=== PATIENT | female | born 1975 | race Caucasian/White ===

== ENCOUNTER 2017-07-09 01:18 | Emergency (ER) | payer MEDICAID ==
[2017-07-09] MEDS ORDERED: Ondansetron 4 MG/2 ML SDV IVPUSH ONE (01:49)
[2017-07-09] MEDS ORDERED: HYDROmorphone 1 MG/ML Syringe IVPUSH ONE (01:49)
--- NOTE | 2017-07-09 01:55 | EDM.PDOC ---
ED HPI GENERAL MEDICAL PROBLEM - General Chief Complaint: Abdominal Pain Stated Complaint: LOWER PAIN RIGHT SIDE Time Seen by Provider: 07/09/17 01:44 Source of Information: Reports: Patient, Family History Limitations: Reports: No Limitations - History of Present Illness INITIAL COMMENTS - FREE TEXT/NARRATIVE: This is a 41-year-old female. This evening she was going down some steps and developed severe pain in her right lower back that goes down into her buttocks. Apparently she has a history of doing house cleaning on a repetitive and continuous process at home. A lot of half bending a lot of twisting mopping sweeping she's been having some soreness in the right lower back but tonight it got markedly worse. She also states she she's had noted some blood in her urine over the last week or so but no fever no chills no nausea vomiting or diarrhea. She denies any trauma to her lower back she denies any upper back type symptoms. Due to the pain in her right lower back and her inability to ambulate very well she comes to the ER. right flank Pain Score (Numeric/FACES): 10 - Related Data Allergies Allergy/AdvReac Type Severity Reaction Status Date / Time codeine Allergy Itching Verified 07/09/17 01:36 Home Meds: Home Meds Orphenadrine [Norflex] 100 mg PO BID PRN #12 tab.er 07/09/17 [Rx] oxyCODONE HCl/Acetaminophen [Percocet 5-325 mg Tablet] 1 each PO Q8HR PRN #12 tablet 07/09/17 [Rx] Past Medical History HEENT History: Reports: Impaired Vision Genitourinary History: Reports: Renal Calculus Oncologic (Cancer) History: Reports: Cervix Other Oncologic History: radiation and chemo - Past Surgical History Female Surgical History: Reports: Hysterectomy, Oophorectomy Social & Family History - Family History Family Medical History: Noncontributory - Tobacco Use Smoking Status *Q: Never Smoker Second Hand Smoke Exposure: No - Caffeine Use Caffeine Use: Reports: Coffee, Energy Drinks - Recreational Drug Use Recreational Drug Use: No ED ROS GENERAL - Review of Systems Review Of Systems: See Below Constitutional: Denies: Fever, Chills HEENT: Reports: No Symptoms Respiratory: Reports: No Symptoms Cardiovascular: Reports: No Symptoms Endocrine: Reports: No Symptoms GI/Abdominal: Reports: No Symptoms : Reports: Hematuria Musculoskeletal: Reports: Back Pain, Other (Right SI joint pain) Skin: Reports: No Symptoms Neurological: Reports: No Symptoms Psychiatric: Reports: No Symptoms Hematologic/Lymphatic: Reports: No Symptoms ED EXAM, GENERAL - Physical Exam Exam: See Below Exam Limited By: No Limitations General Appearance: Alert, WD/WN, Mild Distress Eye Exam: Bilateral Eye: Normal Inspection Ears: Normal External Exam Nose: Normal Inspection Throat/Mouth: Normal Inspection, Normal Lips, Normal Voice, No Airway Compromise Head: Normocephalic Neck: Supple Respiratory/Chest: No Respiratory Distress GI/Abdominal: Soft, Non-Tender Back Exam: Other (Patient really doesn't have any lumbar tenderness on palpation , there is no paraspinal and mid spine pain, however she is markedly tender over the right SI joint and the pain goes down posteriorly just below the buttocks, there is no lower extremity swelling noted) Extremities: Normal Inspection, No Pedal Edema, Other (She denies any extremity symptoms) Neurological: Alert, Oriented Psychiatric: Normal Affect, Normal Mood Skin Exam: Warm, Dry Course - Vital Signs Last Recorded V/S: Last Vital Signs Temp 97.4 F 07/09/17 01:33 Pulse 78 07/09/17 01:33 Resp 18 07/09/17 01:33 BP 109/55 L 07/09/17 01:33 Pulse Ox 98 07/09/17 01:33 - Orders/Labs/Meds Orders: Active Orders 24 hr Category Date Time Status Lumbar Spine 2 or 3V [CR] Stat Exams 07/09/17 01:50 Taken Pelvis 1V or 2V [CR] Stat Exams 07/09/17 01:51 Taken Labs: Laboratory Tests 07/09/17 Range/Units 03:40 Urine Color Yellow (Yellow) Urine Appearance Slt cloudy H (Clear) Urine pH 5.5 (5.0-8.0) Ur Specific [place] > or = 1.030 (1.005-1.030) Urine Protein Negative (Negative) Urine Glucose (UA) Negative (Negative) Urine Ketones Negative (Negative) Urine Occult Blood Negative (Negative) Urine Nitrite Negative (Negative) Urine Bilirubin Negative (Negative) Urine Urobilinogen 0.2 (0.2-1.0) Ur Leukocyte Esterase 1+ H (Negative) Urine RBC 0-5 (0-5) /hpf Urine WBC 5-10 H (0-5) /hpf Urine WBC Clumps Rare (NOT SEEN) /hpf Ur Epithelial Cells 5-10 H (0-5) /hpf Urine Bacteria Few (FEW) /hpf Hyaline Casts 0-5 (0-5) /lpf Urine Mucus Many H (FEW) /hpf Meds: Medications Discontinued Medications Generic Name Dose Route Start Last Admin Trade Name Carlosq PRN Reason Stop Dose Admin Hydromorphone HCl 1 mg 07/09/17 01:49 07/09/17 01:57 Dilaudid IVPUSH 07/09/17 01:50 1 mg ONETIME ONE Administration Ketorolac Tromethamine 30 mg 07/09/17 02:58 07/09/17 03:06 Toradol IVPUSH 07/09/17 02:59 30 mg ONETIME ONE Administration Ondansetron HCl 4 mg 07/09/17 01:49 07/09/17 01:57 Zofran IVPUSH 07/09/17 01:50 4 mg ONETIME ONE Administration - Radiology Interpretation Free Text/Narrative:: X-rays of the pelvis and lumbar spine do not show any acute changes - Re-Assessments/Exams Free Text/Narrative Re-Assessment/Exam: 07/09/17 04:39 I spoke to the patient regarding her x-ray results as well as the urinalysis. I explained to her that she has a right sacroiliacitis is causing her pain and that she will need to follow-up with her family doctor for possible physical therapy. I'll provide something for muscle relaxer and something for pain and she is to continue with her anti-inflammatories. Departure - Departure Time of Disposition: 04:40 Disposition: Home, Self-Care 01 Condition: Good Clinical Impression: Pain of right sacroiliac joint, Muscle spasm of back - Discharge Information Prescriptions: oxyCODONE HCl/Acetaminophen [Percocet 5-325 mg Tablet] 1 each PO Q8HR PRN #12 tablet PRN Reason: Pain Orphenadrine [Norflex] 100 mg PO BID PRN #12 tab.er PRN Reason: Spasms Forms: ED Department Discharge Additional Instructions: Take the medicine for pain and for muscle spasms as needed, use ice to your back to help with the soreness or heat depending which feels better, follow-up with your family doctor this week for recheck and possible physical therapy, continue with your anti-inflammatories such as ibuprofen, return to the ER as needed - My Orders Last 24 Hours: My Active Orders 07/09/17 01:50 Lumbar Spine 2 or 3V [CR] Stat 07/09/17 01:51 Pelvis 1V or 2V [CR] Stat - Assessment/Plan Last 24 Hours: My Active Orders 07/09/17 01:50 Lumbar Spine 2 or 3V [CR] Stat 07/09/17 01:51 Pelvis 1V or 2V [CR] Stat
[2017-07-09] MEDS ORDERED: Ketorolac 30 MG/ML SDV IVPUSH ONE (02:58)
--- NOTE | 2017-07-10 06:45 | CR ---
Pelvis: AP view of the pelvis was obtained. Comparison: No prior study. Slight sclerosis is seen within the sacroiliac joints. Joint spaces within both hips are preserved. Surgical clips are seen within the pelvis. No fracture or other abnormality is seen. Impression: 1. Slight degenerative sclerosis noted within the sacroiliac joints. 2. Surgical clips. 3. AP pelvis study is otherwise unremarkable. Diagnostic code #2
--- NOTE | 2017-07-10 06:45 | CR ---
Lumbar spine: AP, lateral and coned-down lateral views centered to the lumbosacral junction were obtained. Comparison: No prior study. Severe disc space narrowing is noted at L5-S1. Other disc spaces are preserved. Vertebral body heights are maintained. Pedicles as well as visualized transverse and spinous processes are intact. Slight sclerosis is noted within the sacroiliac joints. Multiple surgical clips are partially seen within the pelvis. Impression: 1. Severe disc space narrowing at L5-S1. Mild degenerative sclerosis within both sacroiliac joints. Diagnostic code #2
== END 2017-07-09 04:48 | disposition home or self-care (01) ==
LOC: JD.ED 01:18
DX: M53.3 Sacrococcygeal disorders, not elsewhere classified (principal); M62.830 Muscle spasm of back; Z88.5 Allergy status to narcotic agent
CPT/HCPCS: 72100; 72170; 81001; 96374; 96375; 99284; J1170; J1885; J2405

== ENCOUNTER 2017-07-24 09:17 | Emergency (ER) | payer MEDICAID ==
[2017-07-24] MEDS ORDERED: HYDROmorphone 1 MG/ML Syringe IM ONE (11:20)
[2017-07-24] MEDS ORDERED: Cyclobenzaprine 10 MG Tab PO ONE (11:20)
[2017-07-24] MEDS ORDERED: predniSONE 20 MG Tab PO ONE (11:21)
--- NOTE | 2017-07-24 11:26 | EDM.PDOC ---
ED HPI GENERAL MEDICAL PROBLEM - General Chief Complaint: Back Pain or Injury Stated Complaint: BACK PAIN Time Seen by Provider: 07/24/17 11:09 Source of Information: Reports: Patient History Limitations: Reports: No Limitations - History of Present Illness INITIAL COMMENTS - FREE TEXT/NARRATIVE: Patient is a 41-year-old female presents ED complaining of low back pain with right-sided sciatica. Patient states she was seen in the ED with x-ray of the lumbar spine obtained. She was referred to chiropractor for further treatment. Chiropractor states it appears patient has a herniated disc and he will not do any further treatment. She was told to go to a surgeon for back surgery. Patient 's been trying homeopathic therapies at home with no relief. She has not established care here in [place] with moving here just 21/2 weeks ago. States the pain waxes and wanes in intensity with intermittent pain down the right leg. There is no saddle anesthesia, incontinence to urine/stool, n/t, or weakness. She does limp with walking but notes there is no foot drop. No prior injury to the affected area. She also has a history of cervical cancer with intermittent hemorrhagic cystitis secondary to radiation. She offers no additional complaints at this time. Lower Back Pain Score (Numeric/FACES): 8 - Related Data Allergies Allergy/AdvReac Type Severity Reaction Status Date / Time codeine Allergy Itching Verified 07/24/17 09:30 Home Meds: Home Meds Cyclobenzaprine [Flexeril] 10 mg PO TID PRN #12 tablet 07/24/17 [Rx] Naproxen 500 mg PO BID #14 tablet 07/24/17 [Rx] Prednisone [IJD: predniSONE] 40 mg PO WITHBREAKFAST #10 tab 07/24/17 [Rx] Past Medical History HEENT History: Reports: Impaired Vision Genitourinary History: Reports: Renal Calculus Musculoskeletal History: Reports: Other (See Below) Other Musculoskeletal History: "blown disk in lower back" Psychiatric History: Reports: Anxiety Oncologic (Cancer) History: Reports: Cervix Other Oncologic History: radiation and chemo - Past Surgical History Female Surgical History: Reports: Hysterectomy, Oophorectomy Social & Family History - Family History Family Medical History: Noncontributory - Tobacco Use Smoking Status *Q: Never Smoker Second Hand Smoke Exposure: No - Caffeine Use Caffeine Use: Reports: Coffee, Energy Drinks - Recreational Drug Use Recreational Drug Use: No ED ROS GENERAL - Review of Systems Review Of Systems: ROS reveals no pertinent complaints other than HPI. ED EXAM,LOWER BACK PAIN/INJURY - Physical Exam Exam: See Below Exam Limited By: No Limitations General Appearance: Alert, WD/WN, Moderate Distress Ears: Hearing Grossly Normal Nose: Normal Inspection Throat/Mouth: Normal Voice, No Airway Compromise Neck: Normal Inspection, Supple Respiratory/Chest: No Respiratory Distress, Lungs Clear, Normal Breath Sounds, No Accessory Muscle Use, Chest Non-Tender Cardiovascular: Normal Peripheral Pulses, Regular Rate, Rhythm, No Murmur GI/Abdominal: Normal Bowel Sounds, Soft, Non-Tender, No Organomegaly, No Distention Back Exam: Normal Inspection, Decreased Range of Motion, Paraspinal Tenderness, Vertebral Tenderness. No: CVA Tenderness (L), CVA Tenderness (R) Extremities: Normal Inspection, Non-Tender, No Pedal Edema, Normal Capillary Refill, Limited Range of Motion Neurological: Alert, Normal Mood/Affect, Normal Dorsiflexion, CN II-XII Intact, Normal Plantar Flexion, No Motor/Sensory Deficits, Oriented x 3, Straight Leg Raise (R), Difficulty Walking. No: Normal Gait, Straight Leg Raise (L) Psychiatric: Normal Affect, Normal Mood Skin Exam: Warm, Dry, Intact, Normal Color Course - Vital Signs Last Recorded V/S: Last Vital Signs Temp 97.8 F 07/24/17 09:26 Pulse 76 07/24/17 09:26 Resp 18 07/24/17 09:26 BP 119/80 07/24/17 09:26 Pulse Ox 100 07/24/17 09:26 - Orders/Labs/Meds Meds: Medications Discontinued Medications Generic Name Dose Route Start Last Admin Trade Name Freq PRN Reason Stop Dose Admin Cyclobenzaprine HCl 10 mg 07/24/17 11:20 07/24/17 11:47 Flexeril PO 07/24/17 11:21 10 mg ONETIME ONE Administration Hydromorphone HCl 1 mg 07/24/17 11:20 07/24/17 11:45 Dilaudid IM 07/24/17 11:21 1 mg ONETIME ONE Administration Prednisone 40 mg 07/25/17 11:21 Prednisone PO 07/25/17 11:22 ONETIME ONE Prednisone 40 mg 07/24/17 11:21 07/24/17 11:47 Prednisone PO 07/24/17 11:22 40 mg ONETIME ONE Administration - Re-Assessments/Exams Free Text/Narrative Re-Assessment/Exam: Patient sitting up in bed with moderate amount of pain on examination. Positive right leg straight leg test. Ordered flexeril 10 mg by mouth, hydromorphone 1 mg IM, and prednisone 40 mg by mouth. Plan is to discharge patient home after patient has decrease in pain noted. Referral to physical therapy as well as MRI of the back will be ordered on outpatient basis. We'll schedule appointment with Dr. Jeffery to establish care and for further pain management. 07/24/17 12:43 reassessment, patient's pain has improved with the above therapies. She is ready be discharged home. We're able to make an appointment with Dr. Jeffery at 10:30 tomorrow morning. I have ordered MRI of the lumbar spine and also PT referral to evaluate and treat. They will contact her with both appointment times and days. Discharge instructions as documented. Departure - Departure Time of Disposition: 12:44 Disposition: Home, Self-Care 01 Clinical Impression: Lumbar back pain with radiculopathy affecting right lower extremity, Muscle spasm of back - Discharge Information Prescriptions: Cyclobenzaprine [Flexeril] 10 mg PO TID PRN #12 tablet PRN Reason: Pain (Severe 7-10) Naproxen 500 mg PO BID #14 tablet Prednisone [IJD: predniSONE] 40 mg PO WITHBREAKFAST #10 tab Instructions: Back Injury Prevention, [id number], Muscle Strain, [id number] , Back Pain, Adult, [id number], Pain Medicine Instructions, [id number] Referrals: Leighton Peter [Physician] - Forms: ED Department Discharge Additional Instructions: Take the Flexeril 10 mg 3 times a day as needed. In addition prescribed naproxen 500 mg twice a day and prednisone 40 mg every morning for the next 5 days. Take both medications with food and plenty of water. Refrain from any activities that cause worsening pain. Can apply ice to affected area as needed with warm compresses in alternating fashion. You have an appointment with Dr. Jeffery 07/25/2017 at 10:30 a.m to establish care and for further pain management. Outpatient MRI study of the lumbar spine has been ordered they will contact you with appointment time. See Dr. Jeffery for results of MRI. In addition ordered PT referral to evaluate and treat. They will contact you with appointment time. No driving today since receiving a sedative medication while in the ED. No driving while taking the Flexeril. Refrain from any activities that cause worsening pain. Return to the ED as needed for any new or worsening symptoms.
[2017-07-25] MEDS ORDERED: predniSONE 20 MG Tab PO ONE (11:21)
== END 2017-07-24 13:05 | disposition home or self-care (01) ==
LOC: JD.ED 09:17
DX: M54.16 Radiculopathy, lumbar region (principal); M62.830 Muscle spasm of back; Z88.5 Allergy status to narcotic agent
CPT/HCPCS: 96372; 99283; A9270; J1170

== ENCOUNTER 2017-09-05 13:13 | Emergency (ER) | payer MEDICAID ==
[2017-09-05] MEDS ORDERED: HYDROmorphone 1 MG/ML Syringe IVPUSH ONE ×4 (13:38→17:41)
[2017-09-05] MEDS ORDERED: Sodium Chloride 0.9% 10 ML Syringe FLUSH PRN (13:38)
[2017-09-05] MEDS ORDERED: Sodium Chloride 0.9% 1,000 ML IV SCH (13:45)
[2017-09-05] MEDS ORDERED: Ondansetron 4 MG/2 ML SDV IVPUSH ONE (16:01)
--- NOTE | 2017-09-05 16:29 | EDM.PDOC ---
ED HPI GENERAL MEDICAL PROBLEM - General Chief Complaint: Genitourinary Problem Stated Complaint: BLOOD CLOTS IN URINE Time Seen by Provider: 09/05/17 13:25 Source of Information: Reports: Patient History Limitations: Reports: No Limitations - History of Present Illness INITIAL COMMENTS - FREE TEXT/NARRATIVE: The patient presents with hematura and pelvic pain this started today. She has been passing many clots. She had cervical cancer in 2011 that required radiation and hysterectomy with salpingo oophorectomy. She did good until June. She started having severe low back pain. She was seen here twice and the second time an MRI was ordered. The MRI showed possible mets to the right iliac and sacrum. There was also a soft tissue mass near the right iliac bone. She went back to [facility] to see her doctor Dr Tl Jasso. He did a PET scan and a biopsy. She was heading back to see him yesterday when she got called not to come because the results were not in. She started passing clots in her urine. She has dysuria. She feels weak. She has no headache, chest pain, or shortness of breath. She has some nausea. Onset: Today Duration: Hour(s): Location: Reports: Abdomen Quality: Reports: Sharp Severity: Moderate Improves with: Reports: None Worsens with: Reports: None Associated Symptoms: Reports: Nausea/Vomiting. Denies: Chest Pain, Fever/Chills , Headaches, Shortness of Breath lower back Pain Score (Numeric/FACES): 8 - Related Data Allergies Allergy/AdvReac Type Severity Reaction Status Date / Time codeine Allergy Itching Verified 09/05/17 13:24 Home Meds: Home Meds Cyclobenzaprine [Flexeril] 10 mg PO TID PRN #12 tablet 07/24/17 [Rx] Naproxen 500 mg PO BID #14 tablet 07/24/17 [Rx] HYDROmorphone [Dilaudid] 2 mg PO Q4H PRN 09/05/17 [History] Past Medical History HEENT History: Reports: Impaired Vision Genitourinary History: Reports: Renal Calculus, Retention, Urinary Musculoskeletal History: Reports: Other (See Below) Other Musculoskeletal History: "blown disk in lower back", possible metastasis to back Psychiatric History: Reports: Anxiety Oncologic (Cancer) History: Reports: Bladder, Cervix Other Oncologic History: radiation and chemo - Past Surgical History Female Surgical History: Reports: Hysterectomy, Oophorectomy, Other (See Below) Other Female Surgeries/Procedures: radiation to bladder Social & Family History - Family History Family Medical History: Noncontributory - Tobacco Use Smoking Status *Q: Unknown Ever Smoked Second Hand Smoke Exposure: No - Caffeine Use Caffeine Use: Reports: Soda - Recreational Drug Use Recreational Drug Use: No ED ROS GENERAL - Review of Systems Review Of Systems: See Below Constitutional: Reports: No Symptoms HEENT: Reports: No Symptoms Respiratory: Reports: No Symptoms Cardiovascular: Reports: No Symptoms Endocrine: Reports: No Symptoms GI/Abdominal: Reports: Abdominal Pain, Nausea. Denies: Vomiting : Reports: Dysuria, Hematuria Musculoskeletal: Reports: No Symptoms ED EXAM, RENAL/ - Physical Exam Exam: See Below Exam Limited By: No Limitations General Appearance: Alert, No Apparent Distress Ears: Normal External Exam Nose: Normal Inspection Head: Atraumatic, Normocephalic Neck: Normal Inspection Respiratory/Chest: No Respiratory Distress, Lungs Clear, Normal Breath Sounds Cardiovascular: Regular Rate, Rhythm, No Edema, No Murmur GI/Abdominal: Soft, No Organomegaly, No Mass, Tender (Moderate tenderness to the lower abdomen) Back Exam: Normal Inspection Extremities: Normal Inspection Neurological: Alert, Oriented, No Motor/Sensory Deficits Course - Vital Signs Last Recorded V/S: Last Vital Signs Temp 97.9 F 09/05/17 13:15 Pulse 102 H 09/05/17 13:15 Resp 18 09/05/17 13:15 BP 135/95 H 09/05/17 13:15 Pulse Ox 98 09/05/17 13:15 - Orders/Labs/Meds Orders: Active Orders 24 hr Category Date Time Status Insert Leslie Catheter [Insert Urinary Catheter] [OM.PC] Care 09/05/17 14:45 Ordered Q24H Peripheral IV Care [RC] . DIRECTED Care 09/05/17 13:38 Active Urinary Catheter Assessment [RC] ASDIRECTED Care 09/05/17 14:43 Active CULTURE URINE [RM] Stat Lab 09/05/17 13:50 Received Sodium Chloride 0.9% [Normal Saline] 1,000 ml Med 09/05/17 13:45 Active IV ASDIRECTED Sodium Chloride 0.9% [Saline Flush] Med 09/05/17 13:38 Active 10 ml FLUSH ASDIRECTED PRN Peripheral IV Insertion Adult [OM.PC] Stat Oth 09/05/17 13:38 Ordered Medication Orders Sodium Chloride (Normal Saline) 1,000 mls @ 125 mls/hr IV ASDIRECTED MIRZA Last Admin: 09/05/17 14:06 Dose: 125 mls/hr Sodium Chloride (Saline Flush) 10 ml FLUSH ASDIRECTED PRN PRN Reason: Keep Vein Open Last Admin: 09/05/17 14:08 Dose: 10 ml Labs: Laboratory Tests 09/05/17 09/05/17 09/05/17 Range/Units 13:50 14:05 14:05 WBC 11.24 H (3.98-10.04) K/mm3 RBC 3.13 L (3.98-5.22) M/mm3 Hgb 8.9 L (11.2-15.7) gm/L Hct 27.4 L (34.1-44.9) % MCV 87.5 (79.4-94.8) fl MCH 28.4 (25.6-32.2) pg MCHC 32.5 (32.2-35.5) g/dl RDW Std Deviation 41.9 (36.4-46.3) fL Plt Count 663 H (182-369) K/mm3 MPV 8.5 L (9.4-12.3) fl Neut % (Auto) 78.8 H (34.0-71.1) % Lymph % (Auto) 12.5 L (19.3-51.7) % [place] % (Auto) 7.2 (4.7-12.5) % Eos % (Auto) 0.7 (0.7-5.8) Baso % (Auto) 0.4 (0.1-1.2) % Neut # (Auto) 8.85 H (1.56-6.13) K/mm3 Lymph # (Auto) 1.41 (1.18-3.74) K/mm3 [place] # (Auto) 0.81 H (0.24-0.36) K/mm3 Eos # (Auto) 0.08 (0.04-0.36) K/mm3 Baso # (Auto) 0.04 (0.01-0.08) K/mm3 Manual Slide Review Abnormal smear Sodium 139 (136-145) mEq/L Potassium 3.4 L (3.5-5.1) mEq/L Chloride 102 (98-107) mEq/L Carbon Dioxide 25 (21-32) mEq/L Anion Gap 15.4 H (5-15) BUN 7 (7-18) mg/dL Creatinine 0.7 (0.55-1.02) mg/dL Est Cr Clr Drug Dosing 112.06 mL/min Estimated GFR (MDRD) > 60 (>60) mL/min BUN/Creatinine Ratio 10.0 L (14-18) Glucose 114 H (74-106) mg/dL Calcium 9.5 (8.5-10.1) mg/dL Total Bilirubin 0.3 (0.2-1.0) mg/dL AST 13 L (15-37) U/L ALT 17 (14-59) U/L Alkaline Phosphatase 118 H (46-116) U/L Total Protein 8.9 H (6.4-8.2) g/dl Albumin 3.2 L (3.4-5.0) g/dl Globulin 5.7 gm/dL Albumin/Globulin Ratio 0.6 L (1-2) Urine Color Red H (Yellow) Urine Appearance Turbid H (Clear) Urine pH 7.0 (5.0-8.0) Ur Specific [place] 1.025 (1.005-1.030) Urine Protein 3+ H (Negative) Urine Glucose (UA) Negative (Negative) Urine Ketones Negative (Negative) Urine Occult Blood 3+ H (Negative) Urine Nitrite Positive H (Negative) Urine Bilirubin Negative (Negative) Urine Urobilinogen 0.2 (0.2-1.0) Ur Leukocyte Esterase Trace H (Negative) Urine RBC >100 H (0-5) /hpf Urine WBC 5-10 H (0-5) /hpf Ur Epithelial Cells 0-5 (0-5) /hpf Urine Bacteria Few (FEW) /hpf Urine Mucus Not seen (FEW) /hpf Meds: Medications Generic Name Dose Route Start Last Admin Trade Name Freq PRN Reason Stop Dose Admin Sodium Chloride 1,000 mls @ 125 mls/hr 09/05/17 13:45 09/05/17 14:06 Normal Saline IV 125 mls/hr ASDIRECTED MIRZA Administration Sodium Chloride 10 ml 09/05/17 13:38 09/05/17 14:08 Saline Flush FLUSH 10 ml ASDIRECTED PRN Administration Keep Vein Open Discontinued Medications Generic Name Dose Route Start Last Admin Trade Name Mercedes PRN Reason Stop Dose Admin Hydromorphone HCl 1 mg 09/05/17 13:38 09/05/17 14:07 Dilaudid IVPUSH 09/05/17 13:39 1 mg ONETIME ONE Administration Hydromorphone HCl 1 mg 09/05/17 14:53 09/05/17 14:58 Dilaudid IVPUSH 09/05/17 14:54 1 mg ONETIME ONE Administration Hydromorphone HCl 1 mg 09/05/17 16:47 09/05/17 16:52 Dilaudid IVPUSH 09/05/17 16:48 1 mg ONETIME ONE Administration Ondansetron HCl 4 mg 09/05/17 16:01 09/05/17 16:09 Zofran IVPUSH 09/05/17 16:02 4 mg ONETIME ONE Administration - Re-Assessments/Exams Free Text/Narrative Re-Assessment/Exam: 09/05/17 16:40 I ordered an IV NS at 125mL/hr, dilaudid 1mg IV, labs and UA. She voided for us and there was multiple clots mixed with urine. Bladder scan post void about 8mls but she is passing clots so I ordered a 3 way cath to irrigate. Her WBC was elevated at 11.24. Her hgb was low at 8.9. He platelets were elevated at 663. Her K was a little low at 3.4. Her glucose is 114. Her alk phos was elevated at 118. Her UA shows RBCs >100, nitrites and WBCs 5-10. With irrigation she is still having clots. I feel she will need to be admitted but we do not have urologist or secondary school teacher/onc here. I called [facility] and talked with Dr Sahni and she accepted the patient. I will fly her to [place]. 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 DIRECTED Sodium Chloride 0.9% [Saline Flush] 10 ml FLUSH ASDIRECTED PRN Peripheral IV Insertion Adult [OM.PC] Stat 09/05/17 13:45 Sodium Chloride 0.9% [Normal Saline] 1,000 ml IV ASDIRECTED 09/05/17 13:50 CULTURE URINE [RM] Stat 09/05/17 14:43 Urinary Catheter Assessment [RC] ASDIRECTED 09/05/17 14:45 Insert Leslie Catheter [Insert Urinary Catheter] [OM.PC] Q24H - Assessment/Plan Last 24 Hours: My Active Orders 09/05/17 13:38 Peripheral IV Care [RC] . DIRECTED Sodium Chloride 0.9% [Saline Flush] 10 ml FLUSH ASDIRECTED PRN Peripheral IV Insertion Adult [OM.PC] Stat 09/05/17 13:45 Sodium Chloride 0.9% [Normal Saline] 1,000 ml IV ASDIRECTED 09/05/17 13:50 CULTURE URINE [RM] Stat 09/05/17 14:43 Urinary Catheter Assessment [RC] ASDIRECTED 09/05/17 14:45 Insert Leslie Catheter [Insert Urinary Catheter] [OM.PC] Q24H
[2017-09-05] MEDS ORDERED: cefTRIAXone 2 GM in Sodium Chloride 0.9% 100 ML IV ONE (17:26)
== END 2017-09-05 18:22 ==
LOC: JD.ED 13:13
DX: N39.0 Urinary tract infection, site not specified (principal); D64.9 Anemia, unspecified; R19.00 Intra-abdominal and pelvic swelling, mass and lump, unspecified site; C79.02 Secondary malignant neoplasm of left kidney and renal pelvis; Z90.710 Acquired absence of both cervix and uterus; Z85.41 Personal history of malignant neoplasm of cervix uteri; Z88.5 Allergy status to narcotic agent; Z79.899 Other long term (current) drug therapy
CPT/HCPCS: 36415; 51700; 51798; 80053; 81001; 85025; 87086; 87088; 87186; 96361; 96365; 96375; 96376; 99285; J0696; J1170; J2405; J7030; J7040; J7050; 99284